=== PATIENT | female | born 1955 | race Caucasian/White ===

== ENCOUNTER 2023-05-24 03:51 | Inpatient (IN) ==
[2023-05-24] MEDS ORDERED: LORazepam 2 MG/ML VIAL IV ONE (04:03)
[2023-05-24] MEDS ORDERED: IPRATROPIUM/ALBUTEROL 3 ML AMPUL.NEB NEB ONE (04:03)
[2023-05-24 04:32] LABS: POC Calcium, Ionized 1.08 (1.16-1.32); POC Creatinine 0.8 (0.6-1.2); POC Potassium 3.6 (3.3-5.1)
[2023-05-24 04:57] LABS: Hemoglobin 10.3 g/dL (11.2-15.7); Mean Cell Volume 100.9 fL (80.0-100.0); Mean Corpuscular HGB Conc 31.2 g/dL (31.0-36.0); Mean Platelet Volume 10.2 fL (8.8-12.5); Platelet Count 362 K/mcL (140-440); RBC 3.27 M/mcL (3.59-5.38); WBC 17.6 K/mcL (4.5-11.0)
[2023-05-24 05:15] LABS: ALT/SGPT 8 U/L (<40); AST/SGOT 13 U/L (<32); Albumin 2.8 gm/dL (3.2-5.2); Albumin/Globulin Ratio 0.6 (1.0-2.3); Alkaline Phosphatase 169 U/L (39-117); Bilirubin,Total 0.3 mg/dL (0.1-1.0); Blood Urea Nitrogen 17 mg/dL (8-23); Calcium 8.4 mg/dL (8.6-10.4); Carbon Dioxide 26 mmol/L (22-30); Chloride 98 mmol/L (96-108); Globulin 4.4 gm/dL (2.2-3.7); Glomerular Filtration Rate 75; Glucose 139 mg/dL (70-105)
[2023-05-24 05:33] LABS: Band Neutrophils % 6 % (0-10); Eosinophils % (Manual) 1 % (0-7); Lymphocytes % 9 % (15-49); Macrocytosis 1+ (None Seen); Monocytes % (Manual) 8 % (1-12); Platelet Estimate NORMAL (Normal); RBC Morphology ABNORMAL (Normal); Segmented Neutrophils % 76 % (38-78)
[2023-05-24] MEDS ORDERED: cefTRIAXone 1 GM VIAL IV ONE (05:54)
[2023-05-24] MEDS ORDERED: AZITHROMYCIN 500 MG in DEXTROSE 5% IN WATER 250 ML IV ONE (05:54)
[2023-05-24] MEDS ORDERED: ONDANSETRON 4 MG/2 ML VIAL IV PRN ×2 (07:48→08:46)
[2023-05-24] MEDS ORDERED: POTASSIUM CHLORIDE 20 MEQ TABLET PO PRN ×2 (08:46)
[2023-05-24] MEDS ORDERED: POLYETHYLENE GLYCOL 3350 17 GM PACKET PO PRN (08:46)
[2023-05-24] MEDS ORDERED: SENNOSIDES 1 TABLET PO PRN (08:46)
[2023-05-24] MEDS ORDERED: MAGNESIUM SULFATE 2 GM/50 ML BAG IV PRN (08:46)
[2023-05-24] MEDS ORDERED: POTASSIUM CHLORIDE 40 MEQ in DEXTROSE 5% IN WATER 500 ML IV PRN (08:46)
[2023-05-24] MEDS ORDERED: HYDROcodone/APAP 5/325MG TABLET PO PRN (08:48)
[2023-05-24] MEDS ORDERED: ACETAMINOPHEN 325 MG TABLET PO PRN (08:48)
[2023-05-24 08:55] LABS: Appearance,Urine CLOUDY (Clear); Bacteria,Urine MANY /hpf (0); Bilirubin,Urine Negative (Negative); Color,Urine Yellow; Culture Indicated,Urine Yes; Glucose,Urine (UA) Negative (Negative); Ketones,Urine Negative (Negative); Leukocyte Esterase,Urine 500 /uL (Negative); Mucus,Urine MANY /hpf; Nitrate,Urine Negative (Negative); Protein,Urine 100 mg/dL (Negative); Specific Gravity,Urine 1.055 (1.000-1.035); Urine Blood Negative (Negative); Urine RBC 6 /hpf (0-3); Urine Squamous Epithelial Cell 1 /hpf (0-4); Urine WBC 150 /hpf (0-4)
[2023-05-24] MEDS: ENOXAPARIN 40 MG/0.4 ML SYRINGE SQ SCH (10:15)
[2023-05-24] MEDS: DOCUSATE SODIUM 100 MG CAPSULE PO SCH ×2 (10:16→21:41)
[2023-05-24] MEDS ORDERED: methylPREDNISolone SOD SUCC 125 MG/2 ML VIAL IV SCH (10:44)
[2023-05-24] MEDS ORDERED: IPRATROPIUM/ALBUTEROL 3 ML AMPUL.NEB NEB PRN (10:44)
[2023-05-24] MEDS: HYDROcodone/APAP 10/325MG TABLET PO PRN ×3 (11:41→19:31)
[2023-05-24] MEDS: BUDESONIDE 0.5 MG/2 ML AMPUL.NEB NEB SCH ×2 (12:46→19:50)
[2023-05-24] MEDS: methylPREDNISolone SOD SUCC 125 MG/2 ML VIAL IV SCH ×2 (14:18→21:42)
[2023-05-24] MEDS: CARISOPRODOL 350 MG TABLET PO SCH ×3 (14:18→21:44)
[2023-05-24] MEDS: LABETALOL HCL 20 MG/4 ML VIAL IV PRN (19:44)
[2023-05-24] MEDS: IPRATROPIUM/ALBUTEROL 3 ML AMPUL.NEB NEB PRN (19:50)
[2023-05-25] MEDS: HYDROcodone/APAP 10/325MG TABLET PO PRN ×3 (03:18→19:30)
[2023-05-25] MEDS: methylPREDNISolone SOD SUCC 125 MG/2 ML VIAL IV SCH ×3 (05:44→21:45)
[2023-05-25 07:01] LABS: Basophils # (Auto) 0.02 K/mcL (0.00-0.30); Basophils % (Auto) 0.1 % (0.0-2.0); Eosinophils # (Auto) 0 K/mcL (0.00-0.70); Eosinophils % (Auto) 0 % (0.0-7.0); Hemoglobin 10.6 g/dL (11.2-15.7); Lymphocytes % (Auto) 6.1 % (15.5-49.0); Mean Cell Volume 102.3 fL (80.0-100.0); Mean Corpuscular HGB Conc 30.3 g/dL (31.0-36.0); Mean Platelet Volume 10.2 fL (8.8-12.5); Monocytes # (Auto) 0.33 K/mcL (0.10-0.90); Neutrophils % (Auto) 90.6 % (38.0-78.0); Platelet Count 407 K/mcL (140-440); RBC 3.42 M/mcL (3.59-5.38); Red Cell Distribution Width 13.7 % (11.5-14.5); WBC 16.4 K/mcL (4.5-11.0)
[2023-05-25 07:26] LABS: ALT/SGPT 11 U/L (<40); AST/SGOT 13 U/L (<32); Albumin 2.7 gm/dL (3.2-5.2); Albumin/Globulin Ratio 0.6 (1.0-2.3); Alkaline Phosphatase 172 U/L (39-117); Bilirubin,Direct < 0.2 mg/dL (0-0.3); Bilirubin,Total 0.2 mg/dL (0.1-1.0); Blood Urea Nitrogen 14 mg/dL (8-23); Calcium 8.9 mg/dL (8.6-10.4); Carbon Dioxide 24 mmol/L (22-30); Chloride 101 mmol/L (96-108); Globulin 4.6 gm/dL (2.2-3.7); Glomerular Filtration Rate 93; Glucose 184 mg/dL (70-105); Lactate Dehydrogenase 181 U/L (135-225); Phosphorous 2.7 mg/dL (2.5-4.5); Triglycerides 105 mg/dL (<150); Uric Acid 5.8 mg/dL (2.5-8.0)
[2023-05-25] MEDS: IPRATROPIUM/ALBUTEROL 3 ML AMPUL.NEB NEB PRN ×2 (08:14→21:07)
[2023-05-25] MEDS: BUDESONIDE 0.5 MG/2 ML AMPUL.NEB NEB SCH ×2 (08:14→21:07)
[2023-05-25] MEDS: SERTRALINE 100 MG TABLET PO SCH (08:18)
[2023-05-25] MEDS: ATORVASTATIN 20 MG TABLET PO SCH (08:18)
[2023-05-25] MEDS: OMEPRAZOLE 20 MG CAPSULE PO SCH (08:18)
[2023-05-25] MEDS: FUROSEMIDE 20 MG TABLET PO SCH (08:18)
[2023-05-25] MEDS: METOPROLOL SUCCINATE 50 MG TAB.XL.24H PO SCH (08:18)
[2023-05-25] MEDS: AZITHROMYCIN 250 MG TABLET PO SCH (08:18)
[2023-05-25] MEDS: ASPIRIN 81 MG TAB.CHEW PO SCH (08:18)
[2023-05-25] MEDS: ENOXAPARIN 40 MG/0.4 ML SYRINGE SQ SCH (08:19)
[2023-05-25] MEDS: DOCUSATE SODIUM 100 MG CAPSULE PO SCH ×2 (08:38→20:36)
[2023-05-25] MEDS: cefTRIAXone 1 GM VIAL IV SCH (08:38)
[2023-05-25] MEDS ORDERED: QUEtiapine 25 MG TABLET PO SCH (09:00)
[2023-05-25] MEDS: CARISOPRODOL 350 MG TABLET PO SCH ×4 (09:06→20:57)
[2023-05-25] MEDS: LABETALOL HCL 20 MG/4 ML VIAL IV PRN ×2 (16:08→23:35)
[2023-05-25] MEDS: QUEtiapine 25 MG TABLET PO SCH (20:57)
[2023-05-26] MEDS: HYDROcodone/APAP 10/325MG TABLET PO PRN ×4 (01:31→20:49)
[2023-05-26] MEDS: LABETALOL HCL 20 MG/4 ML VIAL IV PRN (01:32)
[2023-05-26] MEDS: methylPREDNISolone SOD SUCC 125 MG/2 ML VIAL IV SCH (05:46)
[2023-05-26 06:33] LABS: Basophils # (Auto) 0.03 K/mcL (0.00-0.30); Basophils % (Auto) 0.1 % (0.0-2.0); Eosinophils # (Auto) 0 K/mcL (0.00-0.70); Eosinophils % (Auto) 0 % (0.0-7.0); Hematocrit 35.8 % (34.1-44.9); Lymphocytes # (Auto) 1.21 K/mcL (1.50-4.80); Lymphocytes % (Auto) 5.6 % (15.5-49.0); Mean Cell Volume 100.8 fL (80.0-100.0); Mean Corpuscular HGB Conc 30.7 g/dL (31.0-36.0); Mean Platelet Volume 10.1 fL (8.8-12.5); Monocytes # (Auto) 0.75 K/mcL (0.10-0.90); Monocytes % (Auto) 3.5 % (1.0-12.0); Neutrophils % (Auto) 89.7 % (38.0-78.0); Platelet Count 467 K/mcL (140-440); RBC 3.55 M/mcL (3.59-5.38); Red Cell Distribution Width 13.7 % (11.5-14.5); WBC 21.5 K/mcL (4.5-11.0)
[2023-05-26] MEDS: BUDESONIDE 0.5 MG/2 ML AMPUL.NEB NEB SCH ×2 (08:12→21:21)
[2023-05-26] MEDS: IPRATROPIUM/ALBUTEROL 3 ML AMPUL.NEB NEB PRN (08:12)
[2023-05-26] MEDS: SERTRALINE 100 MG TABLET PO SCH (08:45)
[2023-05-26] MEDS: CARISOPRODOL 350 MG TABLET PO SCH ×4 (08:45→20:48)
[2023-05-26] MEDS: ASPIRIN 81 MG TAB.CHEW PO SCH (08:45)
[2023-05-26] MEDS: OMEPRAZOLE 20 MG CAPSULE PO SCH (08:45)
[2023-05-26] MEDS: FUROSEMIDE 20 MG TABLET PO SCH (08:45)
[2023-05-26] MEDS: cefTRIAXone 1 GM VIAL IV SCH (08:45)
[2023-05-26] MEDS: ATORVASTATIN 20 MG TABLET PO SCH (08:45)
[2023-05-26] MEDS: AZITHROMYCIN 250 MG TABLET PO SCH (08:45)
[2023-05-26] MEDS: METOPROLOL SUCCINATE 50 MG TAB.XL.24H PO SCH (08:45)
[2023-05-26] MEDS: ENOXAPARIN 40 MG/0.4 ML SYRINGE SQ SCH (08:46)
[2023-05-26] MEDS: DOCUSATE SODIUM 100 MG CAPSULE PO SCH ×2 (08:46→20:59)
[2023-05-26] MEDS ORDERED: ALBUMIN HUMAN 12.5 GM/50 ML VIAL IV ONE (08:57)
[2023-05-26] MEDS ORDERED: FUROSEMIDE 40 MG/4 ML VIAL IV ONE (08:57)
[2023-05-26] MEDS ORDERED: LISINOPRIL 10 MG TABLET PO SCH (09:00)
[2023-05-26] MEDS: ENALAPRILAT 1.25 MG/ML VIAL IV PRN (11:09)
[2023-05-26 12:30] LABS: Lymphocytes % 5 % (15-49); Macrocytosis 1+ (None Seen); Monocytes % (Manual) 3 % (1-12); Nucleated Red Blood Cells 1 % (0-0); Platelet Estimate INCREASED (Normal); Polychromasia FEW (None Seen); RBC Morphology ABNORMAL (Normal); Segmented Neutrophils % 92 % (38-78)
[2023-05-26] MEDS: methylPREDNISolone SOD SUCC 40 MG/ML VIAL IV SCH ×2 (14:24→22:45)
[2023-05-26] MEDS: QUEtiapine 25 MG TABLET PO SCH (20:48)
[2023-05-27] MEDS: ENALAPRILAT 1.25 MG/ML VIAL IV PRN ×2 (00:42→03:32)
[2023-05-27] MEDS: HYDROcodone/APAP 10/325MG TABLET PO PRN ×3 (03:05→14:30)
[2023-05-27] MEDS: methylPREDNISolone SOD SUCC 40 MG/ML VIAL IV SCH (06:07)
[2023-05-27 06:09] LABS: Basophils # (Auto) 0.04 K/mcL (0.00-0.30); Basophils % (Auto) 0.3 % (0.0-2.0); Eosinophils # (Auto) 0 K/mcL (0.00-0.70); Eosinophils % (Auto) 0 % (0.0-7.0); Hematocrit 39.7 % (34.1-44.9); Hemoglobin 12.3 g/dL (11.2-15.7); Mean Cell Volume 100.8 fL (80.0-100.0); Mean Platelet Volume 10.1 fL (8.8-12.5); Monocytes # (Auto) 0.62 K/mcL (0.10-0.90); Monocytes % (Auto) 3.9 % (1.0-12.0); Neutrophils % (Auto) 87.1 % (38.0-78.0); Platelet Count 528 K/mcL (140-440); RBC 3.94 M/mcL (3.59-5.38); Red Cell Distribution Width 13.9 % (11.5-14.5); WBC 15.7 K/mcL (4.5-11.0)
[2023-05-27 07:09] LABS: Blood Urea Nitrogen 18 mg/dL (8-23); Calcium 9.2 mg/dL (8.6-10.4); Carbon Dioxide 29 mmol/L (22-30); Chloride 94 mmol/L (96-108); Glomerular Filtration Rate 88; Glucose 123 mg/dL (70-105)
[2023-05-27] MEDS: BUDESONIDE 0.5 MG/2 ML AMPUL.NEB NEB SCH (07:30)
[2023-05-27] MEDS: IPRATROPIUM/ALBUTEROL 3 ML AMPUL.NEB NEB PRN (07:30)
[2023-05-27] MEDS ORDERED: predniSONE 20 MG TABLET PO SCH (08:00)
[2023-05-27] MEDS: SERTRALINE 100 MG TABLET PO SCH (08:08)
[2023-05-27] MEDS: FUROSEMIDE 20 MG TABLET PO SCH (08:08)
[2023-05-27] MEDS: CARISOPRODOL 350 MG TABLET PO SCH ×2 (08:08→14:33)
[2023-05-27] MEDS: OMEPRAZOLE 20 MG CAPSULE PO SCH (08:08)
[2023-05-27] MEDS: ATORVASTATIN 20 MG TABLET PO SCH (08:09)
[2023-05-27] MEDS: ENOXAPARIN 40 MG/0.4 ML SYRINGE SQ SCH (08:09)
[2023-05-27] MEDS: DOCUSATE SODIUM 100 MG CAPSULE PO SCH (08:09)
[2023-05-27] MEDS: cefTRIAXone 1 GM VIAL IV SCH (08:09)
[2023-05-27] MEDS: ASPIRIN 81 MG TAB.CHEW PO SCH (08:09)
[2023-05-27] MEDS ORDERED: METOPROLOL SUCCINATE 50 MG TAB.XL.24H PO SCH (09:00)
[2023-05-27] MEDS ORDERED: LISINOPRIL 10 MG TABLET PO SCH (09:00)
[2023-05-27] MEDS ORDERED: FLUZONE HD QS2023-24/PF 240 MCG/0.7 ML SYRINGE IM ONE (10:00)
== END 2023-05-27 14:40 | disposition home or self-care (01) | DRG 871 ==
LOC: ED 03:51 → ICU 09:36
PROVIDERS: ADMIT Internal Medicine; ATTEND Internal Medicine